=== PATIENT | male | born 1925 | race Caucasian/White ===

== ENCOUNTER 2017-01-26 02:14 | Inpatient (IN) | payer MEDICARE ==
[2017-01-26] VITALS (13 sets, daily range): BP systolic 140–190; BP diastolic 49–111
[~2017-01-26] VITALS: Ht 177.8 cm; Wt 81.3 kg
[~2017-01-26 02:14] MED LIST: ALLP300T PO; AMLO5TAB2 PO; ASP325T PO; ASP81CT; ASP81CT PO; ASP81TEC PO; CETI-208 PO; CLOP75TA PO; CLPD75T PO; COLC0.6T7; CYAN1TAB16 PO; IBP600T1; IRB150T; LNS30CCR; LOSA50TA6 PO; MGX400T PO; MULT-608; NFAMINITAB PO; OMEP40CA36 PO; PNT40TEC PO; RMP5C PO; SMV20T PO; VISION VITAMIN; [UNRECOGNIZED DRUG - OTHER]
[2017-01-26 02:23] LABS: BASOPHILS % (AUTO) 0 % (0-10); EOSINOPHILS # (AUTO) 0.1 10^3/uL (0.0-0.3); EOSINOPHILS % (AUTO) 2 % (0-10); LYMPHOCYTES # (AUTO) 1.3 X 10^3 (1.0-4.0); LYMPHOCYTES % (AUTO) 28 % (12-44); MEAN CORPUSCULAR HEMOGLOBIN 30 PG (25-34); MEAN CORPUSCULAR HGB CONC 33 G/DL (32-36); MEAN CORPUSCULAR VOLUME 90 FL (80-99); MEAN PLATELET VOLUME 11.8 FL (7.4-10.4); MONOCYTES # (AUTO) 0.7 X 10^3 (0.0-1.0); MONOCYTES % (AUTO) 16 % (0-12); NEUTROPHILS # (AUTO) 2.5 X 10^3 (1.8-7.8); NEUTROPHILS % (AUTO) 54 % (42-75); PLATELET COUNT 123 10^3/uL (130-400); RED BLOOD COUNT 3.87 10^6/uL (4.35-5.85); WHITE BLOOD COUNT 4.6 10^3/uL (4.3-11.0)
[2017-01-26 02:31] LABS: PROTHROMBIN TIME PATIENT 13.3 SEC (12.2-14.7)
[2017-01-26] MEDS ORDERED: LABETALOL HCL 20 MG/4 ML VIAL ONE (02:36)
[2017-01-26] MEDS ORDERED: METO-272 PO (02:37)
[2017-01-26 02:41] LABS: ALANINE AMINOTRANSFERASE 10 U/L (0-55); ALBUMIN 3.4 G/DL (3.2-4.5); ANION GAP 13 MMOL/L (5-14); ASPARTATE AMINO TRANSFERASE 17 U/L (5-34); BILIRUBIN,TOTAL 0.5 MG/DL (0.1-1.0); BLOOD UREA NITROGEN 27 MG/DL (7-18); BUN/CREATININE RATIO 13; CALCIUM 9.1 MG/DL (8.5-10.1); CARBON DIOXIDE 19 MMOL/L (21-32); CHLORIDE 110 MMOL/L (98-107); CREATININE SERUM 2.14 MG/DL (0.60-1.30); GFR ESTIMATED 29; GLUCOSE 110 MG/DL (70-105); POTASSIUM 4.1 MMOL/L (3.6-5.0); SODIUM 142 MMOL/L (135-145); TOTAL PROTEIN 5.9 G/DL (6.4-8.2)
[2017-01-26] MEDS ORDERED: LABETALOL HCL 20 MG/4 ML VIAL IV ONE (02:45)
[2017-01-26] MEDS ORDERED: NS IV 1000 ML 1,000 ML IV ONE (02:45)
--- NOTE | 2017-01-26 02:45 | ED Neurological Problem ---
General Chief Complaint: Neuro-Stroke Like Symptoms Stated Complaint: POSS STROKE Nursing Triage Note: PT TO ED PER EMS. EMS WAS ALERTED BY THAT PT WAS THRASHING AROUND IN BED ET WOULD NOT WAKE UP. EMS REPORTS RIGHT SIDE PARALYSIS. PT NOT ALERT. OPENS EYES INTERMITTENTLY WHEN SPOKEN TO. NO VERBALIZATION AT THIS TIME. LAST KNOWN WELL TIME [id number]. Nursing Sepsis Screen: No Definite Risk Source: patient Exam Limitations: no limitations History of Present Illness Time seen by provider: 02:15 Initial Comments This 89-year-old gentleman is brought to the emergency room via EMS after his activated 911 as of decreased responsiveness. Patient was very restless in bed and his could not get him up. EMS reports right-sided deficits and aphasia. Last known well time according to his was approximately 22:30. Exact time is not known. also has some dementia. His does state that he was at baseline and fully functional prior to bed. Patient was taken directly to CT scanner upon arrival. NIH stroke score was 27. Allergies and Home Medications Allergies Coded Allergies: Codeine (Verified Allergy, Unknown, 11/08/06) Uncoded Allergies: [id number] (IV DYE, IODINE CONTAINING) (Allergy, Mild, 09/19/09) Home Medications Allopurinol 300 Mg Tablet, 150 MG PO DAILY, (Reported) Aspirin 81 Mg Tabec, 81 MG PO DAILY, (Reported) Clopidogrel 75 Mg Tablet, 75 MG PO DAILY, (Reported) Magnesium Oxide 400 Mg Tab, 400 MG PO --, (Reported) Metoprolol Succinate 50 Mg Tab.er.24h, 50 MG PO DAILY, (Reported) Pantoprazole Sodium 40 Mg Tablet.dr, 40 MG PO HS, (Reported) Ramipril 5 Mg Capsule, 5 MG PO HS, (Reported) Simvastatin 20 Mg Tablet, 20 MG PO HS, (Reported) Vitamin C/Vitamin E 1 Tab Tab, 1 TAB PO DAILY, (Reported) Constitutional: no symptoms reported Eyes: No Symptoms Reported Ears, Nose, Mouth, Throat: no symptoms reported Respiratory: no symptoms reported Cardiovascular: no symptoms reported Gastrointestinal: no symptoms reported, other (Dysphagia) Genitourinary: no symptoms reported Musculoskeletal: no symptoms reported Skin: no symptoms reported Psychiatric/Neurological: See HPI Endocrine: No Symptoms Reported Hematologic/Lymphatic: No Symptoms Reported Past Snghyip-Ibxtld-Macqwz Hx Patient Social History Recent Foreign Travel: No Contact w/Someone Who Travel: No Recent Infectious Disease Expo: No Immunizations Up To Date Tetanus Booster (TDap): Unknown Date of Pneumonia Vaccine: Sep 10, 2008 Date of Influenza Vaccine: Aug 14, 2012 Surgeries HX Surgeries: Yes Surgeries: Abdominal (hernia), Adenoidectomy, Coronary Stent, Defibrillator, Eye Surgery, Pacemaker, Tonsillectomy, Vascular Surgery (iliac stents) Respiratory Hx Respiratory Disorders: Yes Cardiovascular Hx Cardiac Disorders: Yes Cardiac Disorders: Cardiomyopathy, Coronary Artery Disease, Heart Attack, High Cholesterol, Hypertension, Peripheral Vascular Neurological Hx Neurological Disorders: No Reproductive System Hx Reproductive Disorders: No Genitourinary Hx Genitourinary Disorders: Yes Genitourinary Disorders: Renal Failure Gastrointestinal Hx Gastrointestinal Disorders: No Musculoskeletal Hx Musculoskeletal Disorders: Yes Musculoskeletal Disorders: Gout Endocrine Hx Endocrine Disorders: Yes Endocrine Disorders: Diabetes, Non-Insulin dep HEENT HX ENT Disorders: No HEENT Disorders: Macular Degeneration Cancer Hx Cancer: No Psychosocial Hx Psychiatric Problems: No Integumentary HX Skin/Integumentary Disorder: No Blood Transfusions Hx Blood Disorders: No Physical Exam Vital Signs Vital Sign - Last 12Hours 01/26/17 01/26/17 02:14 02:20 Temp 99.2 Pulse 57 Resp 14 B/P (MAP) 184/76 Pulse Ox 96 O2 Delivery Nasal Cannula O2 Flow Rate 2.00 Capillary Refill : Less Than 3 Seconds General Appearance: WD/WN, no apparent distress HEENT: PERRL/EOMI, normal ENT inspection, other (hypersensitivity to light) Neck: normal inspection Respiratory: lungs clear, normal breath sounds, no respiratory distress, no accessory muscle use Cardiovascular: regular rate, rhythm, no edema, no murmur Gastrointestinal: normal bowel sounds, non tender, soft Extremities: normal inspection, no pedal edema Neurologic/Psychiatric: alert, other (Aphasia, right extremity paralysis, Right -sided facial droop) Crainal Nerves: PERRL Skin: normal color, warm/dry Progress/Results/Core Measures Results/Orders Lab Results Laboratory Tests Test 01/26/17 02:15 01/26/17 03:10 Range/Units White Blood Count 4.6 4.3-11.0 10^3/uL Red Blood Count 3.87 L 4.35-5.85 10^6/uL Hemoglobin 11.5 L 13.3-17.7 G/DL Hematocrit 35 L 40-54 % Mean Corpuscular Volume 90 80-99 FL Mean Corpuscular Hemoglobin 30 25-34 PG Mean Corpuscular Hemoglobin Concent 33 32-36 G/DL Red Cell Distribution Width 15.0 H 10.0-14.5 % Platelet Count 123 L 130-400 10^3/uL Mean Platelet Volume 11.8 H 7.4-10.4 FL Neutrophils (%) (Auto) 54 42-75 % Lymphocytes (%) (Auto) 28 12-44 % Monocytes (%) (Auto) 16 H 0-12 % Eosinophils (%) (Auto) 2 0-10 % Basophils (%) (Auto) 0 0-10 % Neutrophils # (Auto) 2.5 1.8-7.8 X 10^3 Lymphocytes # (Auto) 1.3 1.0-4.0 X 10^3 Monocytes # (Auto) 0.7 0.0-1.0 X 10^3 Eosinophils # (Auto) 0.1 0.0-0.3 10^3/uL Basophils # (Auto) 0.0 0.0-0.1 10^3/uL Prothrombin Time 13.3 12.2-14.7 SEC INR Comment 1.0 0.8-1.4 Activated Partial Thromboplast Time 32 24-35 SEC D-Dimer 1.61 H 0.00-0.49 UG/ML Sodium Level 142 135-145 MMOL/L Potassium Level 4.1 3.6-5.0 MMOL/L Chloride Level 110 H 98-107 MMOL/L Carbon Dioxide Level 19 L 21-32 MMOL/L Anion Gap 13 5-14 MMOL/L Blood Urea Nitrogen 27 H 7-18 MG/DL Creatinine 2.14 H 0.60-1.30 MG/DL Estimat Glomerular Filtration Rate 29 BUN/Creatinine Ratio 13 Glucose Level 110 H 70-105 MG/DL Calcium Level 9.1 8.5-10.1 MG/DL Total Bilirubin 0.5 0.1-1.0 MG/DL Aspartate Amino Transf (AST/SGOT) 17 5-34 U/L Alanine Aminotransferase (ALT/SGPT) 10 0-55 U/L Alkaline Phosphatase 65 40-136 U/L Troponin I < 0.30 <0.30 NG/ML Total Protein 5.9 L 6.4-8.2 G/DL Albumin 3.4 3.2-4.5 G/DL Urine Color YELLOW Urine Clarity SLIGHTLY CLOUDY Urine pH 6 5-9 Urine Specific [place] 1.015 L 1.016-1.022 Urine Protein 3+ H NEGATIVE Urine Glucose (UA) NEGATIVE NEGATIVE Urine Ketones NEGATIVE NEGATIVE Urine Nitrite NEGATIVE NEGATIVE Urine Bilirubin NEGATIVE NEGATIVE Urine Urobilinogen NORMAL NORMAL MG/DL Urine Leukocyte Esterase NEGATIVE NEGATIVE Urine RBC (Auto) 1+ H NEGATIVE Urine RBC 2-5 H /HPF Urine WBC NONE /HPF Urine Crystals PRESENT H /LPF Urine Amorphous Sediment FEW NELSY URATES H /LPF Urine Bacteria TRACE /HPF Urine Casts NONE /LPF Urine Mucus NEGATIVE /LPF Urine Culture Indicated NO My Orders Orders - ABIODUN BRYSON MD Ct Head Wo-R/O Stroke (01/26/17 02:16) Cbc With Automated Diff (01/26/17 02:16) Protime With Inr (01/26/17 02:16) Partial Thromboplastin Time (01/26/17 02:16) Comprehensive Metabolic Panel (01/26/17 02:16) Fibrin Degradation Products (01/26/17 02:16) Troponin I (01/26/17 02:16) Ua Culture If Indicated (01/26/17 02:16) Chest 1 View, Ap/Pa Only (01/26/17 02:16) Catheter(Urinary) Insert & Ass 03,15 (01/26/17 02:16) Ekg Tracing (01/26/17 02:16) Nothing By Mouth (01/26/17 Breakfast) Accucheck Stat ONCE (01/26/17 02:16) Saline Lock/Iv-Start (01/26/17 02:16) Saline Lock/Iv-Start (01/26/17 02:16) Vital Signs-Stroke Q1H (01/26/17 02:16) O2 (01/26/17 02:16) Intake & Output 06,14,22 (01/26/17 02:16) Monitor-Rhythm Ecg Trace Only (01/26/17 02:16) Dysphagia Screening Tool (01/26/17 02:16) Post Thrombolytic Adminstratio (01/26/17 02:16) Labetalol Injection (Normodyne Injection (01/26/17 02:45) Labetalol Injection (Normodyne Injection (01/26/17 02:36) Ns Iv 1000 Ml (Sodium Chloride 0.9%) (01/26/17 02:45) Vital Signs/I&O Vital Sign - Last 12Hours 01/26/17 01/26/17 02:14 02:20 Temp 99.2 Pulse 57 Resp 14 B/P (MAP) 184/76 Pulse Ox 96 O2 Delivery Nasal Cannula O2 Flow Rate 2.00 Blood Pressure Mean: 112 Progress Note #1: Time: 02:43 Progress Note Patient has extremely profound deficits. Last known well time reported by patient's who has dementia was 22:30. CT of the head showed no acute intracranial findings. Case was reviewed with Dr. Mohan, stroke neurologist at [facility]. She believes there are too many risk factors including prolonged time from onset, age, high blood pressure. She advises against giving TPA. Progress Note #2: Progress Note I had a follow-up conversation with Dr. Mohan regarding the potential for performing a CT angiogram. Given the duration of time has lapsed and patient's renal failure, CT angiogram was not felt to be beneficial. Patient was not allowed to drink as he had some difficulty with clearing and coughing his secretions. ECG Initial ECG Impression Date: Jan 26, 2017 Initial ECG Impression Time: 02:24 Initial ECG Rate: 60 Initial ECG Rhythm: Normal Sinus Comment Sinus rhythm with first-degree AV block and chronic left bundle branch block. No significant changes from prior. Diagnostic Imaging Diagonstic Imaging: Xray Plain Films/CT/US/NM/MRI: chest Comments Chest x-ray viewed by me. No acute abnormalities appreciated when compared with prior. Diagonstic Imaging: CT Plain Films/CT/US/NM/MRI: head Comments CT head viewed by me and statin rad report reviewed. No acute abnormalities appreciated. Departure Communication Time/Spoke to Admitting Phy: 03:45 Communication Case reviewed with Dr. Carson who agrees with admission. She requests the in- house stroke order set be used. Patient is to be admitted to the cardiac step down unit. Impression Impression: Primary Impression: Cerebrovascular accident due to cerebral artery occlusion Additional Impressions: Right sided weakness Aphasia Dysphagia Qualified Codes: R13.10 - Dysphagia, unspecified Hypertension Qualified Codes: I10 - Essential (primary) hypertension Disposition: ADMITTED INPATIENT Condition: Improved Decision to Admit Reason: Admit from ER (General) Decision to Admit/Date: Jan 26, 2017 Departure-Patient Inst. Referrals: JERRY CARSON MD (PCP/Family) Primary Care Physician ABIODUN BRYSON MD Jan 26, 2017 02:45
[2017-01-26 02:47] LABS: TROPONIN I < 0.30 NG/ML (<0.30)
[2017-01-26 03:24] LABS: BILIRUBIN,URINE NEGATIVE (NEGATIVE); KETONES,URINE NEGATIVE (NEGATIVE); LEUKOCYTE ESTERASE ,URINE NEGATIVE (NEGATIVE); NITRITE,URINE NEGATIVE (NEGATIVE); PH,URINE 6 (5-9); PROTEIN,URINE 3+ (NEGATIVE); UROBILINOGEN,URINE NORMAL (NORMAL)
[2017-01-26] MEDS ORDERED: SCOPOLAMINE 1.5 MG (TRANSDERM-SCOP) PATCH TD ONE (04:30)
[2017-01-26] MEDS ORDERED: ACETAMINOPHEN 325 MG TABLET/CAPLET (TYLENOL) PO PRN (05:45)
[2017-01-26] MEDS ORDERED: ONDANSETRON 4 MG/2 ML (SDV) Z0FRAN IV PRN (05:45)
[2017-01-26] MEDS ORDERED: BISACODYL 10 MG SUPP (DULCOLAX) PR PRN (05:45)
[2017-01-26] MEDS: D5 1/2 NS 1000 ML IV SOLUTION 1,000 ML IV SCH ×2 (06:23→16:55)
[2017-01-26] MEDS ORDERED: CATHETER FLUSH 10 ML SYR IV PRN (07:15)
--- NOTE | 2017-01-26 07:43 | Diagnostic Imaging Report ---
EXAM: CT HEAD WO-R/O STROKE. INDICATION: Stroke. COMPARISON: None. FINDINGS: No CT evidence of acute infarction. No intracranial hemorrhage, mass effect, extra-axial fluid collections, or hydrocephalus. Intracranial vascular calcifications. Moderate generalized cerebral and cerebellar parenchymal volume loss. The mastoids, paranasal sinuses, and orbits are unremarkable. Osseous structures are intact. IMPRESSION: No acute intracranial CT findings. Dictated by: Dictated on workstation # [id number]
--- NOTE | 2017-01-26 07:53 | Diagnostic Imaging Report ---
EXAM: CHEST 1 VIEW, AP/PA ONLY. INDICATION: Stroke. COMPARISON: Chest radiograph 08/01/2013. FINDINGS: Shallow inspiration accentuates the heart size and pulmonary vascularity. AICD. Calcified aorta. Calcified nodule in the left lung base is stable. No pleural effusion or pneumothorax. Mild atelectasis and/or scarring in the left lung base. IMPRESSION: No acute cardiopulmonary findings. Dictated by: Dictated on workstation # [id number]
[2017-01-26] MEDS: FAMOTIDINE 20MG/2ML IV (PEPCID) IV SCH (08:06)
--- NOTE | 2017-01-26 08:23 | History & Physicial ---
History of Present Illness History of Present Illness Reason for visit/HPI PT IS AN 89 Y/O MALE WHO IS KNOWN TO ME FROM CLINIC. THE PATIENT HAS HISTORY OF CORONARY ARTERY DISEASE, PERIPHERAL VASCULAR DISEASE. HE PRESENTED TO THE EMERGENCY DEPARTMENT AFTER HIS AWAKENED TO ED PULLING/ MOVING THE SHEETS - THIS WAS AROUND 1 AM. SHE REPORTS THAT SHE WAS UNABLE TO AWAKEN HIM AND SHE CALLED HER SISTERS AND 911. HE ARRIVED THE THE EMERGENCY DEPT AND WAS STILL NOT COHERENT, CT SCAN WAS NEGATIVE, BUT PHYSICAL EXAM WAS CONSISTENT WITH STROKE. THE PT WAS ADMITTED TO THE ICU, TPA WAS NOT ADMINISTERED DUE TO HIS AGE, RENAL FUNCTION. HE WAS UNABLE TO SWALLOW MEDICATION FOR ADMINISTRATION OF ASPIRIN/ PLAVIX. Date of Admission Jan 26, 2017 at 04:13 I consulted on this patient on 01/26/17 08:22 Attending Physician Jerry Carson MD Admitting Physician Jerry Carson MD Consult Allergies and Home Medications Allergies Coded Allergies: Iodinated Contrast Media - Oral and (Verified Allergy, Unknown, 01/26/17) codeine (Verified Allergy, Unknown, 11/08/06) Home Medications Allopurinol 300 Mg Tablet, 150 MG PO DAILY, (Reported) TAKES 1/2 OF A (300 MG) TABLET Aspirin 81 Mg Tabec, 81 MG PO HS, (Reported) Cholecalciferol (Vitamin D3) 5,000 Unit Capsule, 5,000 UNIT PO HS, (Reported) Clopidogrel Bisulfate 75 Mg Tablet, 75 MG PO HS, (Reported) Magnesium Oxide 400 Mg Tab, 400 MG PO DAILY, (Reported) Metoprolol Succinate 50 Mg Tab.er.24h, 50 MG PO DAILY, (Reported) Pantoprazole Sodium 40 Mg Tablet.dr, 40 MG PO DAILY, (Reported) Ramipril 5 Mg Capsule, 5 MG PO HS, (Reported) Simvastatin 40 Mg Tablet, 20 MG PO HS, (Reported) TAKES 1/2 OF A (40 MG) TABLET Past Rywgitr-Roqsyg-Hekxkn Hx Patient Social History Marrital Status: Number of Children: 1 Number of living children: 1 Living Status: LIVES AT HOME WITH SPOUSE WHO HAS MEMORY LOSS Employed/Student: retired Alcohol Use: Rarely Uses Recreational Drug Use: No Smoking Status: Former Smoker Type Used: Cigarettes 2nd Hand Smoke Exposure: No Physical Abuse Screen: No Sexual Abuse: No Recent Foreign Travel: No Contact w/other who traveled: No Recent Hopitalizations: No Recent Infectious Disease Expo: No Immunizations Up To Date Tetanus Booster (TDap): Unknown Date of Pneumonia Vaccine: Sep 10, 2008 Date of Influenza Vaccine: Aug 14, 2012 Seasonal Allergies Seasonal Allergies: No Surgeries HX Surgeries: Yes (PERIPHERAL STENTS) Surgeries: Abdominal (hernia), Adenoidectomy, Coronary Stent, Defibrillator, Eye Surgery, Pacemaker, Tonsillectomy, Vascular Surgery (iliac stents) Respiratory Hx Respiratory Disorders: Yes Cardiovascular Hx Cardiovascular Disorders: Yes Cardiac Disorders: Cardiomyopathy, Coronary Artery Disease, Heart Attack, High Cholesterol, Hypertension, Peripheral Vascular Neurological Hx Neurological Disorders: No Reproductive System Hx Reproductive Disorders: No Sexually Transmitted Disease: No HIV/AIDS: No Genitourinary Hx Genitourinary Disorders: Yes Genitourinary Disorders: Renal Failure Gastrointestinal Hx Gastrointestinal Disorders: No Musculoskeletal Hx Musculoskeletal Disorders: Yes Musculoskeletal Disorders: Arthritis, Gout Endocrine Hx Endocrine Disorders: Yes Endocrine Disorders: Diabetes, Non-Insulin dep HEENT HX ENT Disorders: No HEENT Disorders: Macular Degeneration Loss of Vision: Denies Hearing Impairment: Denies Cancer Hx Cancer: No Psychosocial Hx Psychiatric Problems: No Integumentary HX Skin/Integumentary Disorder: No Blood Transfusions Hx Blood Disorders: No Adverse Reaction to a Blood Tr: No Reviewed Nursing Assessment Reviewed/Agree w Nursing PMH: Yes Family Medical History Significant Family History: Heart Disease, Hypertension ROS-Unable to Obtain: UNABLE TO OBTAIN DUE TO NONVERBAL STATUS Constitutional: No fever Psychiatric/Neurological: Other (UNABLE TO RESPOND) Physical Exam Vital Signs Vital Sign - Last 12Hours 01/26/17 01/26/17 02:14 02:20 Temp 99.2 Pulse 57 Resp 14 B/P (MAP) 184/76 Pulse Ox 96 O2 Delivery Nasal Cannula O2 Flow Rate 2.00 Capillary Refill : Less Than 3 Seconds General Appearance: Other (OPENS EYES TO VOICE AND TACTILE STIMULI, BUT NOT ABLE TO COMMUNICATE) Eyes: Bilateral Eye Normal Inspection, Bilateral Eye PERRL HEENT: PERRL/EOMI Neck: Supple Respiratory: Chest Non Tender, Lungs Clear, Normal Breath Sounds Cardiovascular: Regular Rate, Rhythm, No Edema Gastrointestinal: Normal Bowel Sounds, No Organomegaly, No Pulsatile Mass, Non Tender, Soft Rectal: Deferred Extremity: Normal Capillary Refill, No Pedal Edema Neurologic/Psychiatric: Aphasia, Depressed Affect, Disoriented x3, Facial Droop (SLIGHTLY ON RIGHT), Motor Weakness (ON RIGHT HAND/ARM) Reflexes: 2+ Bicep (R), 2+ Bicep (L), 2+ Knee (R), 2+ Knee (L) Skin: Normal Color, Warm/Dry Lymphatic: No Adenopathy Assessment/Plan Assessment and Plan CVA CARDIOMYOPATHY HYPERTENSION DIABETES MELLITUS APHASIA HYPERLIPEMIA PT APPEARS TO HAVE HAD A SIGNIFICANT STROKE - WAITING ON REPEAT CT SCAN FOR FULL DETAILS, PT UNABLE TO TAKE PO MEDICATIONS - WILL GIVE BEST SUPPORTIVE CARE AT THIS TIME. I HAVE DISCUSSED WITH PT'S SON AND HE DOES NOT WANT ANY FEEDING TUBES, OR OTHER LIFE-PROLONGING TREATMENTS. HE WANTS HIS FATHER TO BE DNR/DNI. ECHO AND CAROTID US PENDING HTN - LOPRESSOR IV - PARAMETERS FOR BLOOD PRESSURE TO NOT GO BELOW 140 AND HEART RATE TO STAY ABOVE 50. DM - PT NPO - SUPPORTIVE CARE. APHASIA - SPEECH TO EVAL PT. Problems: Admission Diagnosis CVA CARDIOMYOPATHY HYPERTENSION DIABETES MELLITUS APHASIA HYPERLIPEMIA Clinical Quality Measures DVT/VTE Risk/Contraindication: Risk Factor Score Per Nursin RFS Level Per Nursing on Admit: 4+=Very High JERRY CARSON MD Jan 26, 2017 08:23
[2017-01-26] MEDS ORDERED: ASPIRIN E.C. 325 MG (ECOTRIN) TABLET PO SCH (09:00)
[2017-01-26] MEDS ORDERED: PANT40TA3 PO (09:14)
[2017-01-26] MEDS ORDERED: RAMI5CAP PO (09:14)
[2017-01-26] MEDS ORDERED: METO-352 PO (09:14)
[2017-01-26] MEDS ORDERED: SIMV40TA4 PO (09:14)
[2017-01-26] MEDS ORDERED: CLOP75TA28 PO (09:14)
[2017-01-26] MEDS ORDERED: ALLO300T2 PO (09:14)
[2017-01-26] MEDS ORDERED: CHOL5000 PO (09:14)
[2017-01-26] MEDS ORDERED: meTOprolol 5 MG/5 ML (LOPRESSOR) VIAL IV NR (09:30)
--- NOTE | 2017-01-26 09:32 | Occupational Therapy Eval ---
OT Evaluation-General/PLF Medical Diagnosis Admission Date Jan 26, 2017 at 04:13 Medical Diagnosis: CVA, R sided weakness, aphasia, dysphagia Onset Date: Jan 26, 2017 Therapy Diagnosis Therapy Diagnosis: weakness, decr self care, decr func use R UE, decr funct mob , decr vision Height/Weight Height (Feet): 5 Height (Inches): 10.00 Weight (Pounds): 189 Weight (Ounces): 2.0 Precautions Precautions/Isolations: Fall Prevention, Standard Precautions Referral Physician: ahmet Referral Reason: Evaluation/Treatment Medical History Pertinent Medical History: CAD, DM, HTN, NV, Macular Degenertion, PVD Additional Medical History Coronary stent, defibrillator, pacemaker, iliac stents, cardiomyopathy, renal failure, gout. Social History Current Living Status: Spouse ADL-Prior Level of Function ADL PLOF Comments Family reported pt was independent with all basic ADLs and drove yesterday. 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 DME/Equipment Comments Unknown equipment Occupation: retired, worked in sales Drive Self: Yes OT Current Status Subjective Pt seen in room, up in bed. Does not interact with OT other than to wink with his left eye when OT in L visual field. Appearance Unable to assess orientation. Pt is non-verbal and does not follow any commands Mental Status/Objective Attachments: Vásquez Catheter, IV, Telemetry Current Glasses/Contacts: Yes Hearing Aids: Yes Upper Extremity ROM L UE WFL passive range. No active movement due to difficulty following commands but family reported he does move L UE. R UE PROM WFL but no active movement. Upper Extremity Sensation Unable to assess. Pt has macular degeneration so prior vision difficult to assess. He does not look to the right past midline and does not track visually at this time. He does not respond to verbal stimuli on his right side. ADL-Treatment ADL-Current Pt is NPO at this time. He is dependant in self care at this time. Functional [place] Measure 0=Not Assessed/NA 4=Minimal Assistance 1=Total Assistance 5=Supervision or Setup 2=Maximal Assistance 6=Modified [place] 3=Moderate Assistance 7=Complete IndependenceIRFPAI Quality Coding Scale 6 Independent with activity with or without an assistive device 5 Patient requires set up or clean up by helper. Patient completes activity by themselves 4 Supervision or touching assist (CGA). [place] provide cues , steadying assist 3 The helper provides less than half the effort to complete the activity 2 The helper provides more than half the effort to complete the activity 1 Dependent. The helper does all the effort to complete an activity 7 Patient refused to complete or attempt activity 9 The patient did not perform the activity before the current illness or injury 88 Not attempted due to Medical conditions or safety concerns Education OT Patient Education: Purpose of tx/functional activities, Rehab process Teaching Recipient: Family Teaching Methods: Discussion Response to Teaching: Verbalize Understanding OT Short Term Goals Short Term Goals Time Frame: Feb 09, 2017 Eating(FIM): 4 Grooming(FIM): 4 Bathing(FIM): 3 Upper Body Dressing(FIM): 3 Lower Body Dressing(FIM): 2 1=Demonstrate adherence to instructed precautions during ADL tasks. 2=Patient will verbalize/demonstrate understanding of assistive devices/ modifications for ADL. 3=Patient will improve strength/tolerance for activity to enable patient to perform ADL's. OT Allergist Goals Penitentiary Goals Time Frame: February 16, 2017 Eating (FIM): 5 Grooming(FIM): 5 Bathing(FIM): 3 Upper Body Dressing(FIM): 4 Lower Body Dressing(FIM): 4 Toileting(FIM): 3 Toilet/Commode Transfer(FIM): 3 Additional Goals: 2-Verbalize Understanding, 3-ImproveStrength/Michelle 1=Demonstrate adherence to instructed precautions during ADL tasks. 2=Patient will verbalize/demonstrate understanding of assistive devices/ modifications for ADL. 3=Patient will improve strength/tolerance for activity to enable patient to perform ADL's. OT Education/Plan Problem List/Assessment Assessment: Dependent Transfers, Impaired Bed Mobility, Impaired Cognition, Impaired Self-Care Skills, Visual-Perceptual Deficit Pt would benefit from skilled OT to increase his independence in basic self care to allow him to go to the least restrictive environment and decrease caregiver burden. Discharge Recommendations Plan/Recommendations: Continue POC Barriers to Progress significant multiple impairments Treatment Plan/Plan of Care Treatment,Training & Education: Yes Patient would benefit from OT for education, treatment and training to promote independence in ADL's, mobility, safety and/or upper extremity function for ADL' s. Plan of Care: ADL Retraining, Caregiver Training, Functional Mobility, UE Funct Exercise/Act, UE Neuromus Re-Ed/Coord, Visual/Perceptual Retrain Treatment Duration: February 16, 2017 # of days/week 5 Visits Per Week: 5 Agreement: Yes (family in agreement) Rehab Potential: Guarded Time/GCodes Start Time: :13 Stop Time: 09:20 Total Time Billed (hr/min): 7 Billed Treatment Time visit, OT evaluation moderate intensity 7 minutes BRUCE TRUONG OT Jan 26, 2017 09:32
--- NOTE | 2017-01-26 10:32 | Diagnostic Imaging Report ---
PROCEDURE: CT head without contrast. TECHNIQUE: Multiple contiguous axial images were obtained through the brain without the use of intravenous contrast. INDICATION: Stroke. FINDINGS: Compared to 01/26/2017, exam performed 7 hours earlier, there is interval development of hypodensity with evidence of cytotoxic edema along the left insula and subinsular region compatible with an acute infarct. No intracranial hemorrhage. There is no hydrocephalus or extra-axial fluid collection. There are background white matter chronic ischemic changes seen. The area of acute infarct above involves the left insula, adjacent aspect of the basal ganglia, and perisylvian cortex, probably around 15% of the left MCA territory. Te osseous structures, the paranasal sinuses and orbits appear grossly unremarkable. IMPRESSION: Findings compatible with an acute nonhemorrhagic infarct surrounding the left insular region, affecting approximately 15% of the left MCA territory. The findings were called with a voice message left for Dr. Carson at time of dictation. Dictated by: Dictated on workstation # [id number]
--- NOTE | 2017-01-26 11:11 | Physical Therapy Evaluation ---
PT Evaluation-General Medical Diagnosis Admission Date Jan 26, 2017 at 04:13 Medical Diagnosis: CVA, R sided weakness, aphasia, dysphagia Onset Date: Jan 26, 2017 Therapy Diagnosis Therapy Diagnosis: generalized weakness and debility Height/Weight Height (Feet): 5 Height (Inches): 10.00 Weight (Pounds): 189 Weight (Ounces): 2.0 Precautions Precautions/Isolations: Fall Prevention, Standard Precautions Referral Physician: Alli Reason for Referral: Evaluation/Treatment Medical History Pertinent Medical History: CAD, DM, HTN, DC, Macular Degenertion, PVD Additional Medical History [employer] [employer] with hearing aids Current History presents with right sided weakness and neglect; aphasia Reviewed History: Yes Social History Home: Single Level Current Living Status: Spouse Prior/Core FIM Prior Level of Function Functional [place] Measure 0=Not Assessed/NA 4=Minimal Assistance 1=Total Assistance 5=Supervision or Setup 2=Maximal Assistance 6=Modified [place] 3=Moderate Assistance 7=Complete [place] Bed Mobility: 6 Transfers (B,C,W/C) (FIM): 6 Gait: 6 PT Evaluation-Current Subjective Patient is in bed with multiple family members present. Pain Numeric Pain Scale: 0-No Pain Location: No Pain Reported Objective Patient Orientation: Non-Verbal/Aphasic Attachments: Oxygen, Vásquez Catheter, IV ROM/Strength ROM Lower Extremities bilateral LE WFL Strenght Lower Extremities left LE 3-/5 grossly; right LE recoils with pain stimuli plantar aspect of foot ( no formal testing due to patient inability to follow direction) Integumentary/Posture Integumentary refer to nursing notes Bladder Incontinence: Vásquez Cath Neuromuscular (Tone, Coordination, Reflexes) diminished coordination bilaterally; no purposeful movement Sensory Vision: Blind Totally Hearing: Hearing Aid/Aides Sensation Right Lower Extremit: Intact Sensation Left Lower Extremity: Intact Transfers Functional [place] Measure 0=Not Assessed/NA 4=Minimal Assistance 1=Total Assistance 5=Supervision or Setup 2=Maximal Assistance 6=Modified [place] 3=Moderate Assistance 7=Complete [place] Transfers (B, C, W/C) (FIM): 1 Scootin dependent assist x 2 with bed mobility Assessment/Needs 89 y.o. male, with acute CVA, will benefit from skilled PT to address functional strength and mobility. Patient with require gradual advancement of skilled therapy to ensure proper and safe results. PT to increase activity as tolerated by patient. Rehab Potential: Guarded Post Rehab Potential-Barriers: acute CVA PT Short Term Goals Short Term Goals Time Frame: Feb 03, 2017 Transfers (B,C,W/C) (FIM): 3 Gait (FIM): 1 Distance (FIM): 1=up to 49 ft Gait Distance Comment: 10' Gait Level of Assist: 3 Gait Assistive Device: FWW, Walker Darryl PT Business Intelligence Manager Goals Penitentiary Goals PT Business Intelligence Manager Goals Time Frame: February 16, 2017 Transfers (B,C,W/C) (FIM): 5 Gait (FIM): 2 Gait distance (FIM): 3=786-68 ft Distance: 75' Gait Level of Assist: 2 Gait Assistive Device: FWW, Cane Single Point, Walker Darryl PT Plan Problem List Problem List: Activity Tolerance, Functional Strength, Safety, Balance, Gait, Transfer, Bed Mobility Treatment/Plan Treatment Plan: Continue Plan of Care Treatment Plan: Bed Mobility, Education, Functional Activity Michelle, Functional Strength, Gait, Safety, Therapeutic Exercise, Transfers Treatment Duration: February 16, 2017 # of days/week 6 Visits Per Week: 6-11 Pt/Family Agrees w/Plan: Yes Safety Risks/Education Patient Education: Disease Process, Safety Issues Teaching Recipient: Family Teaching Methods: Discussion Response to Teaching: Verbalize Understanding Time/GCodes Time In: 955 Time Out: 1020 Total Billed Treatment Time: 25 Total Billed Treatment 1 visit EVModC 25 min HERBERT FIELDS PT Jan 26, 2017 11:11
--- NOTE | 2017-01-26 11:38 | ST Dysphagia Evaluation ---
Speech Evaluation-General Medical Diagnosis CVA (left MCA), Receptive and Expressive Aphasia, Dysphagia Onset Date: Jan 26, 2017 Therapy Diagnosis Therapy Diagnosis: Severe Oropharyngeal Dysphagia Precautions Precautions/Isolations: Fall Prevention, Standard Precautions Referral Referring Physician: Dr. Aparna Carson Reason for Referral: Evaluation/Treatment Clinical Bedside Swallowing Evaluation Medical History Pertinent Medical History: CAD, DM, HTN, PA, Macular Degenertion, PVD Reviewed History: Yes Social History Home: Single Level Current Living Status: Spouse Speech PLF/Current-Dysphagia Prior Level of Function The patient was receiving a regular diet with thin liquids prior to admission. The patient was not experiencing signs/symptoms of aspiration or laryngeal penetration with any consistency he currently consumes. To note: The patient is currently demonstrating severe expressive and receptive aphasia. Prior level of function information was provided by present family members. Subjective The patient was recently admitted to [facility] following a left MCA ischemic CVA resulting in right sided weakness, aphasia (receptive and expressive), and dysphagia. The patient was placed in an upright position upon entrance. The patient opened his eyes to his name and noise stimuli, however, did not respond to one-step commands (regardless of model provided). Prior to bolus attempts, the patient was provided oral care by the clinician. The patient intermittently attempted to remove liquid from the oral swab, however, demonstrated this motion inconsistently. The patient required maximum verbal prompting for continued alertness throughout the session. The patient is currently receiving 2L supplemental oxygen via nasal cannula. The patient's SpO2 % was 95% prior to, throughout, and following the evaluation. CXR: 01/26/2017: No acute cardiopulmonary findings. Head CT: 01/26/2017: The area of acute infarct involves the left insula, adjacent aspect of the basal ganglia, and perisylvian cortex, probably around 15 % of the left MCA territory. Cognitive Status Patient Orientation: Non-Verbal/Aphasic The patient was unable to respond to orientation questions due to severe expressive and receptive aphasia. Oral Motor Skills Dentition: Natural (Lower, Front Teeth Present) Denture Type: Partial- Upper & Lower Ability to Follow Directions: Unable Oral Expression Ability: Severe Impairment The patient is NPO pending results of swallowing evaluation. Face Facial Symmetry: Asymmetrical (The patient presents with a right facial droop.) The patient was unable to complete verbal prompts or direct modeling cues from clinician to complete oral mechanism evaluation. Oral-Facial Assessment Oral-Facial Dentition: Normal Labial Seal Description: Droops Right Smile: Droops Right Volitional Dry Swallow: No Voluntary Cough: No Dysphagia Evaluation Consistencies Presented: Thin Liquid (Ice Chips via Teaspoon) Oral Phase: Anterior Spillage Anterior loss (right) of liquid consistency was noted throughout the evaluation. - The patient did not elicit a swallow response regardless of tactile stimulus or the presence of bolus material. - The patient demonstrated a wet cough at baseline, which appeared secondary to posterior loss of secretions. Dietary Recommendations: NPO Liquid Recommendations: NPO Dysphagia Evaluation Summary The patient demonstrated severe oropharyngeal dysphagia complicated by his current presentation of expressive and receptive aphasia. At this time, the patient demonstrates throat clearing on secretions and is unable to elicit a swallow response upon command. As the patient does not appear to be handling secretions safely, demonstrates reduced alertness, and displays the inability to follow commands at this time- the patient should remain NPO due to his high risk of aspiration with PO intake of any kind. - Frequent oral care should be provided to reduce the transfer of oral bacteria to the lungs should aspiration of secretions occur. Speech Short Term Goals Short Term Goals Short Term Goals 1. The patient will complete a full oropharyngeal evaluation of swallowing function. Time Frame-STG: Three Days Speech High [employer] Drafting Teacher Goals Care Home Goals 1. The patient will tolerate the least restrictive diet without signs/symptoms of aspiration or laryngeal penetration. Time Frame: One Week Speech-Plan Treatment Plan Speech Therapy Treatment Plan: Continue Plan of Care Continue speech language pathology intervention to target improved swallowing safety. Treatment Duration: Feb 09, 2017 # of days/week Three Visits Per Week: Three Minutes/Day (M-F): 20 Rehab Potential: Guarded Safety Risks/Education Teaching Recipient: Patient, Family, Significant Other Teaching Methods: Discussion Response to Teaching: Verbalize Understanding Education Topics Provided: Results, Recommendations, Plan of Care Time Speech Therapy Time In: 10:30 Speech Therapy Time Out: 10:50 Total Billed Time: 20 Billed Treatment Time Shani KIET MCCARTNEY Jan 26, 2017 11:38
--- NOTE | 2017-01-26 11:53 | Diagnostic Imaging Report ---
PROCEDURE: US Carotid Duplex Bilateral. TECHNIQUE: Multiple real-time grayscale images were obtained over the carotid arteries in various projections bilaterally. Additional duplex Doppler and color Doppler images were also obtained. INDICATION: Acute infarct. FINDINGS: There is mild atherosclerotic plaque along the carotid bifurcation bilaterally. Color Doppler demonstrates patency of the common, internal, and external carotid arteries bilaterally. There is antegrade flow in the vertebral arteries seen on both sides. Peak systolic velocities in the right ICA are 129, 82, and 92 cm/s from proximal/ distal and on the left 73, 77, and 90 cm/s from proximal/ distal. ICA/ CCA ratios are up to 1.6 on the right and up to 0.8 on the left. IMPRESSION: Mild atherosclerotic plaque with estimated underlying stenosis less than 50% bilaterally. Dictated by: Dictated on workstation # [id number]
[2017-01-26] MEDS ORDERED: meTOprolol 5 MG/5 ML (LOPRESSOR) VIAL IV SCH (12:00)
--- NOTE | 2017-01-26 13:18 | Speech Therapy Progress Note ---
Therapy Progress Note Speech pathology attempted speech and language evaluation following dysphagia assessment on this date. At this time, the patient demonstrates limited alertness and participation in the evaluation. The patient intermittently opens eyes to auditory stimulus, however, does not follow simple one-step commands with verbal cues or direct modeling. The patient does not respond to yes/no questions via head nod or verbalization. Additionally, the patient's gaze does not appear to cross midline demonstrating right neglect at this time. Speech pathology will re-attempt language evaluation at a later time. Currently, the patient demonstrates severe expressive and receptive aphasia. KIET OWEN Jan 26, 2017 13:18
[2017-01-26] MEDS ORDERED: ENOXAPARIN 100 MG/1 ML (LOVENOX) SYR SC SCH (14:00)
[2017-01-26] MEDS ORDERED: LORazepam INJ 2 MG/ML (ATIVAN) VIAL IVP NR (14:00)
[2017-01-26] MEDS ORDERED: ENOXAPARIN 40 MG/0.4 ML (LOVENOX) SYR SC SCH (15:00)
--- NOTE | 2017-01-26 15:29 | Speech Therapy Progress Note ---
Therapy Progress Note Speech pathology re-attempted complete dysphagia evaluation. Per RN, the patient was recently administered Ativan due to agitation. Upon entrance, the patient was sleeping. The patient was not roused with gentle verbal or tactile prompts. The patient was observed to cough on secretions throughout brief visit with family members. The patient's mouth was swabbed orally by the clinician prior to exit. Speech pathology will continue attempts to complete evaluation once the patient demonstrates improved alertness/appropriateness. KIET OWEN Jan 26, 2017 15:29
[2017-01-26] MEDS: ASPIRIN 300 MG (5 GR) SUPPOSITORY PR SCH (16:55)
[2017-01-26] MEDS: meTOprolol 5 MG/5 ML (LOPRESSOR) VIAL IV SCH ×2 (19:26→23:48)
[2017-01-26] MEDS: ACETAMINOPHEN 650 MG SUPP (TYLENOL) PR PRN (23:38)
[2017-01-27] VITALS: BP 154/81
[2017-01-27] MEDS: D5 1/2 NS 1000 ML IV SOLUTION 1,000 ML IV SCH ×3 (02:18→22:10)
[2017-01-27 03:55] LABS: MEAN PLATELET VOLUME 12.1 FL (7.4-10.4); RED BLOOD COUNT 3.45 10^6/uL (4.35-5.85); RED CELL DISTRIBUTION WIDTH 14.8 % (10.0-14.5); WHITE BLOOD COUNT 6.5 10^3/uL (4.3-11.0)
[2017-01-27 04:00] VITALS: BP 140/67
[2017-01-27 04:24] LABS: ALBUMIN 3.2 G/DL (3.2-4.5); BILIRUBIN,TOTAL 0.6 MG/DL (0.1-1.0); CALCIUM 8.3 MG/DL (8.5-10.1); CREATININE SERUM 1.81 MG/DL (0.60-1.30); POTASSIUM 3.9 MMOL/L (3.6-5.0); TOTAL PROTEIN 5.5 G/DL (6.4-8.2)
[2017-01-27] MEDS: meTOprolol 5 MG/5 ML (LOPRESSOR) VIAL IV SCH ×3 (05:55→17:55)
--- NOTE | 2017-01-27 06:46 | ECHOCARDIOGRAPHY REPORT ---
DATE OF SERVICE: 2D ECHOCARDIOGRAM DATE OF SERVICE: 01/26/2017 ATTENDING PHYSICIAN: Dr. Aparna Carson DIAGNOSIS: Cerebrovascular accident. FINDINGS: 1. Sinus rhythm with possible PACs and PVCs. 2. Left atrial dimension is borderline enlarged. Left atrial diameter is 4.0 cm. 3. Aortic root dimensions are normal. 4. Left ventricular systolic function is significantly reduced. Left ventricular ejection fraction is 30%. Moderate concentric LVH is present. Diastolic interventricular septal diameter is 1.4 cm. 5. There is no wall motion abnormalities. 6. Right heart size and function is normal. 7. There is no evidence of pericardial effusion. 8. Mild diastolic dysfunction is present. 9. IVC is dilated with a diameter of 2.2 cm which may suggest increased right atrial pressure. VALVULAR STRUCTURES OF THE HEART There is trace tricuspid regurgitation with RVSP of 12 mmHg. There is no significant mitral regurgitation. Aortic valve and pulmonic valve are normal. CONCLUSION: 1. At least moderately reduced left ventricular systolic function with an ejection fraction of 30%. 2. Moderate concentric left ventricular hypertrophy with mild diastolic dysfunction present. 3. Borderline enlarged left atrium. Pulmonary artery pressure is normal. 4. There is no significant valvular heart disease. 5. Inferior vena cava is dilated which may suggest increased right atrial pressure. Job ID: [id number] DocumentID: [id number] Dictated Date: 01/26/2017 16:20:24 Basic Acoustic Analyst Date: 01/26/2017 17:09:48 Dictated By: RAVIN PICKENS MD
--- NOTE | 2017-01-27 09:03 | Progress Note (SOAP) ---
Subjective Subjective/Events-last exam PT NONVERBAL, UNABLE TO ANSWER QUESTIONS OR RESPOND MEANINGFULLY IN ANY MANNER. FAMILY REPORTS SIGNIFICANT RESTLESSNESS LAST NIGHT. PT'S SON REPORTS THAT THE FAMILY WOULD LIKE CONSERVATIVE TREATMENT, BUT GIVE PT TIME TO SEE IF HE WILL HAVE SOME IMPROVEMENT IN FUNCTION OVER THE WEEKEND - WILL DECIDE ON MONDAY FOR CARE HOME VERSUS HOSPICE. Review of Systems Neurological: Other (RIGHT SIDED NEGLECT) PT OBTUNDED, OPENS EYES WITH TACTILE AND LOUD VOCALIZATIONS, NO RESPONSE VERBALLY, NO APPEARANCE OF UNDERSTANDING, DOES NOT FOLLOW COMMANDS. Objective Exam Vital Signs Date Time Temp Pulse Resp B/P (MAP) Pulse Ox O2 Delivery O2 Flow Rate FiO2 01/27/17 07:00 45 01/27/17 04:00 100.1 49 16 140/67 100 Nasal Cannula 2.00 01/27/17 03:30 2.00 01/27/17 01:20 53 01/27/17 00:15 2.00 01/27/17 00:00 101.4 54 18 154/81 100 Nasal Cannula 2.00 01/26/17 23:30 101.4 01/26/17 21:00 Nasal Cannula 2.00 01/26/17 20:00 2.00 01/26/17 19:00 61 01/26/17 19:00 99.0 58 18 151/66 97 Nasal Cannula 2.00 01/26/17 16:00 100.9 59 167/66 97 Nasal Cannula 2.00 01/26/17 16:00 2.00 01/26/17 14:00 59 168/70 95 Nasal Cannula 2.00 01/26/17 13:00 46 01/26/17 13:00 51 143/49 98 Nasal Cannula 2.00 01/26/17 12:00 97.7 49 20 140/49 98 Nasal Cannula 2.00 01/26/17 12:00 2.00 01/26/17 11:00 45 150/56 98 Nasal Cannula 2.00 I & O 01/27/17 07:00 Intake Total 2000 ml Output Total 1300 ml Balance 700 ml Capillary Refill : Less Than 3 Seconds General Appearance: WD/WN, Other (OBTUNDED) HEENT: PERRL/EOMI Neck: Supple Respiratory: Chest Non Tender, Lungs Clear, Normal Breath Sounds Cardiovascular: Regular Rate, Rhythm Gastrointestinal: normal bowel sounds, non tender, soft, no organomegaly, no pulsatile mass Extremity: No Pedal Edema Neurologic/Psychiatric: Aphasia, Depressed Affect, Disoriented x3, Facial Droop (RIGHT MOUTH), Motor Weakness (NO MOVEMENT RIGHT ARM) Skin: Warm/Dry Results Lab Laboratory Tests 01/27/17 03:15: White Blood Count 6.5, Red Blood Count 3.45L, Hemoglobin 10.3L, Hematocrit 31L, Mean Corpuscular Volume 90, Mean Corpuscular Hemoglobin 30, Mean Corpuscular Hemoglobin Concent 33, Red Cell Distribution Width 14.8H, Platelet Count 105L, Mean Platelet Volume 12.1H, Sodium Level 137, Potassium Level 3.9, Chloride Level 110H, Carbon Dioxide Level 18L, Anion Gap 9, Blood Urea Nitrogen 20H, Creatinine 1.81H, Estimat Glomerular Filtration Rate 35, BUN/Creatinine Ratio 11 , Glucose Level 170H, Calcium Level 8.3L, Total Bilirubin 0.6, Aspartate Amino Transf (AST/SGOT) 15, Alanine Aminotransferase (ALT/SGPT) 8, Alkaline Phosphatase 55, Total Protein 5.5L, Albumin 3.2, Triglycerides Level 127, Cholesterol Level 116, LDL Cholesterol Direct 62, VLDL Cholesterol 25, HDL Cholesterol 27L Assessment/Plan Assessment/Plan Assess & Plan/Chief Complaint CVA CARDIOMYOPATHY HYPERTENSION DIABETES MELLITUS APHASIA HYPERLIPEMIA PT APPEARS TO HAVE HAD A SIGNIFICANT STROKE - WAITING ON REPEAT CT SCAN FOR FULL DETAILS, PT UNABLE TO TAKE PO MEDICATIONS - WILL GIVE BEST SUPPORTIVE CARE AT THIS TIME. I HAVE DISCUSSED WITH PT'S SON AND HE DOES NOT WANT ANY FEEDING TUBES, OR OTHER LIFE-PROLONGING TREATMENTS. HE WANTS HIS FATHER TO BE DNR/DNI. CT SCAN - REPORT FINDINGS FOLLOWS: Findings compatible with an acute nonhemorrhagic infarct surrounding the left insular region, affecting approximately 15% of the left MCA territory. ECHO REPORT: CONCLUSION: 1. At least moderately reduced left ventricular systolic function with an ejection fraction of 30%. 2. Moderate concentric left ventricular hypertrophy with mild diastolic dysfunction present. 3. Borderline enlarged left atrium. Pulmonary artery pressure is normal. 4. There is no significant valvular heart disease. 5. Inferior vena cava is dilated which may suggest increased right atrial pressure. CAROTID ULTRASOUND REPORT: Mild atherosclerotic plaque with estimated underlying stenosis less than 50% bilaterally. HTN - LOPRESSOR IV - PARAMETERS FOR BLOOD PRESSURE TO NOT GO BELOW 140 AND HEART RATE TO STAY ABOVE 50. DM - PT NPO - SUPPORTIVE CARE. APHASIA - SPEECH TO EVAL PT. DVT PROPHYLAXIS - PT TO HAVE SCD'S PLACED, BUT NO LOVENOX - FAMILY WANTS CONSERVATIVE TREATMENTS ONLY. Clinical Quality Measures DVT/VTE Risk/Contraindication: Risk Factor Score Per Nursin RFS Level Per Nursing on Admit: 4+=Very High JERRY NUGENT MD Jan 27, 2017 09:03
--- NOTE | 2017-01-27 09:45 | Physical Therapy Progress Note ---
Therapy Progress Note Dr. Carson instructed PT not intervene on this date. PT will continue to monitor patient medical status. HERBERT FIELDS PT Jan 27, 2017 09:45
[2017-01-27] MEDS: FAMOTIDINE 20MG/2ML IV (PEPCID) IV SCH (10:23)
[2017-01-27] MEDS: ASPIRIN 300 MG (5 GR) SUPPOSITORY PR SCH (10:24)
--- NOTE | 2017-01-27 10:35 | Occ Therapy Progress Note ---
Therapy Progress Note 1034 Per PT note, will not see pt today. BRUCE TRUONG OT Jan 27, 2017 10:35
--- NOTE | 2017-01-27 10:53 | Speech Therapy Progress Note ---
Therapy Progress Note Speech pathology attempted to re-assess the patient's swallowing function on this date. The patient was minimally roused (eyes intermittently open) to gentle verbal and tactile prompts. The patient was placed in an upright position prior to assessment attempt. At baseline, the patient demonstrated an SpO2% of 98% with supplemental oxygen (2L) via nasal cannula. Due to the patient 's minimal alertness level, he was not deemed safe for PO trial attempts. The clinician provided extensive oral care, including suctioning of secretions. The patient should remain NPO at this time. To note: While visiting with the patient's family, the patient was noted to cough on secretions. The patient does not appear to elicit a spontaneous swallow to control secretions at this time. Suctioning and oral care should be provided, as appropriate. KIET OWEN Jan 27, 2017 10:53
[2017-01-27 13:55] VITALS: BP 172/69
[2017-01-27] MEDS: ACETAMINOPHEN 650 MG SUPP (TYLENOL) PR PRN (15:04)
--- NOTE | 2017-01-27 15:31 | Speech Therapy Progress Note ---
Therapy Progress Note Speech pathology attempted swallow re-assessment on this date/time. The patient appeared agitated prior to the evaluation, however, was calmed with gentle verbal cues. The patient intermittently opened eyes to request but not consistently/purposefully. The patient's oral cavity was cleaned with a wet, cool swab in attempts to trigger a thermal-tactile swallow response. No swallow attempts were made by the patient. The clinician continued oral care with limited to no participation. At this time, the patient is not triggering a swallow and not remaining in an alert state for full participation. Speech pathology will re-attempt as able. KIET OWEN Jan 27, 2017 15:31
[2017-01-27 15:50] VITALS: BP 171/66
[2017-01-27 18:01] VITALS: BP 175/67
[2017-01-27] MEDS: LORazepam INJ 2 MG/ML (ATIVAN) VIAL IVP PRN (18:52)
[2017-01-27 20:00] VITALS: BP 175/74
[2017-01-28] VITALS: BP 171/75
[2017-01-28] MEDS: meTOprolol 5 MG/5 ML (LOPRESSOR) VIAL IV SCH ×5 (00:08→23:58)
[2017-01-28 04:00] VITALS: BP 177/70
[2017-01-28 08:00] VITALS: BP 171/81
[2017-01-28] MEDS: D5 1/2 NS 1000 ML IV SOLUTION 1,000 ML IV SCH ×2 (08:07→19:58)
[2017-01-28] MEDS: ASPIRIN 300 MG (5 GR) SUPPOSITORY PR SCH (08:07)
[2017-01-28] MEDS: FAMOTIDINE 20MG/2ML IV (PEPCID) IV SCH (08:11)
--- NOTE | 2017-01-28 08:59 | Progress Note (SOAP) ---
Subjective Subjective/Events-last exam patient having a cough today. Spoke to son and states father not progressing. CVA. Right sided weakness. aphagia Hypertension. Renal insufficiency. Coronary artery disease. Peripheral vascular disease. Patient not improving in any way and now has cough Objective Exam Vital Signs Date Time Temp Pulse Resp B/P (MAP) Pulse Ox O2 Delivery O2 Flow Rate FiO2 01/28/17 08:00 100.2 58 24 171/81 98 Nasal Cannula 2.00 01/28/17 07:46 2.00 01/28/17 04:00 99.3 59 24 177/70 97 Nasal Cannula 2.00 01/28/17 00:00 99.6 59 20 171/75 98 Nasal Cannula 2.00 01/27/17 20:00 Nasal Cannula 2.00 01/27/17 20:00 98.4 56 16 175/74 97 Nasal Cannula 2.00 01/27/17 18:01 99.2 54 16 175/67 99 Nasal Cannula 2.00 01/27/17 16:00 2.00 01/27/17 15:50 99.1 54 24 171/66 99 Nasal Cannula 2.00 01/27/17 13:55 99.1 51 20 172/69 98 Nasal Cannula 2.00 01/27/17 13:52 43 01/27/17 12:17 3.00 01/27/17 12:00 2.00 01/27/17 09:00 Nasal Cannula 2.00 I & O 01/28/17 07:00 Intake Total 1000 ml Output Total 1625 ml Balance -625 ml Capillary Refill : Less Than 3 Seconds Clinical Quality Measures DVT/VTE Risk/Contraindication: Risk Factor Score Per Nursin RFS Level Per Nursing on Admit: 4+=Very High Contraindications-Pharm: Other *list below* Contraindications-Mechi: Other *list below* Other: PT TO HAVE SCD'S, FAMILY DOES NOT WANT LOVENOX MAVERICK DOMÍNGUEZ DO Jan 28, 2017 08:59
[2017-01-28 10:22] LABS: MEAN PLATELET VOLUME 11.4 FL (7.4-10.4); RED BLOOD COUNT 3.61 10^6/uL (4.35-5.85); RED CELL DISTRIBUTION WIDTH 14.8 % (10.0-14.5); WHITE BLOOD COUNT 6.7 10^3/uL (4.3-11.0)
[2017-01-28] MEDS ORDERED: SALIVA SUBSTITUTE 60 ML SPRAY(MOUTHKOTE) MM PRN (10:30)
[2017-01-28] MEDS ORDERED: SALIVA STIMULANT MOUTH SPRAY (BIOTENE) 1.5 OZ MM PRN (10:30)
[2017-01-28 10:40] LABS: CALCIUM 8.4 MG/DL (8.5-10.1); CREATININE SERUM 1.75 MG/DL (0.60-1.30); POTASSIUM 3.9 MMOL/L (3.6-5.0)
[2017-01-28] MEDS: ACETAMINOPHEN 650 MG SUPP (TYLENOL) PR PRN (11:43)
[2017-01-28 11:57] VITALS: BP 167/71
[2017-01-28] MEDS: LORazepam INJ 2 MG/ML (ATIVAN) VIAL IVP PRN ×2 (12:47→21:12)
--- NOTE | 2017-01-28 14:38 | Diagnostic Imaging Report ---
Portable erect AP chest 1056 hours. INDICATION: Respiratory distress. FINDINGS: Both the heart and interstitial densities in both lungs do seem more prominent than noted on the prior exam of 01/26/17. I am concerned that there is now an element of mild pulmonary congestion present. The small amount of atelectasis/scar formation in the left lung base increased and the calcified granuloma in the left lower lobe is again evident and no different. There is still no sign of pneumonia. The mediastinum is not widened. The osseous structures are intact. The left-sided defibrillator device is unchanged. IMPRESSION: The appearance of the chest has worsened somewhat since the prior exam as both the heart and the interstitial densities in both lungs do seem more prominent. This appearance does suggest that there is now an element of mild pulmonary congestion present. A followup study would be recommended for continued evaluation. Dictated by: Dictated on workstation # [id number]
[2017-01-28] MEDS ORDERED: FUROSEMIDE 40 MG/4 ML INJ (LASIX) IVP ONE (15:45)
[2017-01-28 16:25] VITALS: BP 147/73
[2017-01-28] MEDS ORDERED: RT-ALBUTEROL/IPRATROPIUM 3 ML (DUONEB) VIAL INH PRN (17:00)
[2017-01-28] MEDS: RT-ALBUTEROL/IPRATROPIUM 3 ML (DUONEB) VIAL INH SCH (18:52)
[2017-01-28 20:20] VITALS: BP 147/61
[2017-01-29 00:37] VITALS: BP 145/69
[2017-01-29] MEDS: LORazepam INJ 2 MG/ML (ATIVAN) VIAL IVP PRN ×2 (02:26→10:35)
[2017-01-29 04:22] VITALS: BP 161/71
[2017-01-29 05:42] VITALS: BP 136/65
[2017-01-29] MEDS: meTOprolol 5 MG/5 ML (LOPRESSOR) VIAL IV SCH (05:42)
[2017-01-29 07:02] LABS: MEAN PLATELET VOLUME 12.4 FL (7.4-10.4); RED BLOOD COUNT 3.76 10^6/uL (4.35-5.85); RED CELL DISTRIBUTION WIDTH 14.8 % (10.0-14.5)
[2017-01-29 07:33] LABS: CALCIUM 8.9 MG/DL (8.5-10.1); CREATININE SERUM 1.79 MG/DL (0.60-1.30); POTASSIUM 3.5 MMOL/L (3.6-5.0)
[2017-01-29] MEDS: RT-ALBUTEROL/IPRATROPIUM 3 ML (DUONEB) VIAL INH SCH (07:47)
[2017-01-29 08:00] VITALS: BP 186/72
[2017-01-29] MEDS: FAMOTIDINE 20MG/2ML IV (PEPCID) IV SCH (08:19)
[2017-01-29] MEDS: ASPIRIN 300 MG (5 GR) SUPPOSITORY PR SCH (08:19)
--- NOTE | 2017-01-29 11:16 | Diagnostic Imaging Report ---
EXAM: CHEST 1 VIEW, AP/PA ONLY INDICATION: Pulmonary congestion. COMPARISON: Chest radiograph 01/28/2017. FINDINGS: Normal heart size. Diffuse interstitial opacities bilaterally consistent with pulmonary venous congestion is overall stable. Bilateral calcified granulomas. No pleural effusion or pneumothorax. Calcified aorta. AICD. No acute osseous findings. IMPRESSION: Persistent interstitial opacities compatible with mild pulmonary venous congestion. Heart size remains normal. Dictated by: Dictated on workstation # [id number]
--- NOTE | 2017-01-29 11:36 | Progress Note (SOAP) ---
Subjective Subjective/Events-last exam patient nonresponsive. Patient starting to have difficulty with his breathing. CVA. Cardiomyopathy. Hypertension. Diabetes. A fascia. Hyperlipidemia. Spoke to family explaining that patient is getting more fragile and worse area Febrile Objective Exam Vital Signs Date Time Temp Pulse Resp B/P (MAP) Pulse Ox O2 Delivery O2 Flow Rate FiO2 01/29/17 08:00 101.3 70 24 186/72 96 Nasal Cannula 2.00 01/29/17 08:00 Nasal Cannula 2.00 01/29/17 07:50 96 2.00 01/29/17 07:00 65 01/29/17 05:42 79 136/65 01/29/17 04:22 100.1 52 20 161/71 94 Nasal Cannula 2.00 01/29/17 01:39 52 01/29/17 00:37 100.0 54 24 145/69 94 Nasal Cannula 2.00 01/28/17 20:20 99.6 60 24 147/61 99 Nasal Cannula 2.00 01/28/17 19:50 99 Nasal Cannula 2.00 01/28/17 18:55 43 01/28/17 18:55 96 2.00 01/28/17 16:25 98.7 61 24 147/73 100 Nasal Cannula 2.00 01/28/17 16:14 97 01/28/17 13:00 53 01/28/17 11:57 100.2 52 24 167/71 99 Nasal Cannula 2.00 I & O 01/29/17 07:00 Intake Total 1000 ml Output Total 3375 ml Balance -2375 ml Capillary Refill : Less Than 3 SecondsLess Than 3 Seconds General Appearance: Other (unresponsive) Respiratory: Other (congestion and chest) Cardiovascular: Regular Rate, Rhythm Results Lab Laboratory Tests 01/29/17 06:51: White Blood Count 7.0, Red Blood Count 3.76L, Hemoglobin 11.2L, Hematocrit 34L, Mean Corpuscular Volume 90, Mean Corpuscular Hemoglobin 30, Mean Corpuscular Hemoglobin Concent 33, Red Cell Distribution Width 14.8H, Platelet Count 115L, Mean Platelet Volume 12.4H, Sodium Level 140, Potassium Level 3.5L, Chloride Level 108H, Carbon Dioxide Level 22, Anion Gap 10, Blood Urea Nitrogen 20H, Creatinine 1.79H, Estimat Glomerular Filtration Rate 36, BUN/Creatinine Ratio 11 , Glucose Level 124H, Calcium Level 8.9 Assessment/Plan Assessment/Plan Assess & Plan/Chief Complaint patient more fragile today. Patient breathing worse. Patient nonresponsive. Family wants everything stop. Family wants comfort care Clinical Quality Measures DVT/VTE Risk/Contraindication: Risk Factor Score Per Nursin RFS Level Per Nursing on Admit: 4+=Very High Contraindications-Pharm: Other *list below* Contraindications-Mechi: Other *list below* Other: PT TO HAVE SCD'S, FAMILY DOES NOT WANT LOVENOX MAVERICK DOMÍNGUEZ DO Jan 29, 2017 11:35
[2017-01-29] MEDS ORDERED: SALIVA STIMULANT MOUTH SPRAY (BIOTENE) 1.5 OZ MM PRN (12:00)
[2017-01-29] MEDS ORDERED: ARTIFICIAL TEARS OINT (LACRI-LUBE) 3.5 GM TUBE OU PRN (12:00)
[2017-01-29] MEDS ORDERED: ARTIFICAL TEARS 0.4 ML UNIT DOSE (REFRESH PLUS) OU PRN (12:00)
[2017-01-29] MEDS ORDERED: BISACODYL 10 MG SUPP (DULCOLAX) PR PRN (12:00)
[2017-01-29] MEDS ORDERED: ACETAMINOPHEN 650 MG SUPP (TYLENOL) PR PRN (12:00)
[2017-01-29] MEDS ORDERED: RT-ALBUTEROL/IPRATROPIUM 3 ML (DUONEB) VIAL INH PRN (12:00)
[2017-01-29] MEDS: GLYCOPYRROLATE 0.2 MG/ML (ROBINUL) 2 ML VIAL IV PRN ×2 (12:05→21:05)
[2017-01-29] MEDS: morphine INJ 4 MG/ML 1 ML (VIAL/SYRINGE) IV PRN ×4 (12:05→21:05)
[2017-01-30] MEDS: morphine INJ 4 MG/ML 1 ML (VIAL/SYRINGE) IV PRN ×4 (01:05→09:47)
[2017-01-30] MEDS: GLYCOPYRROLATE 0.2 MG/ML (ROBINUL) 2 ML VIAL IV PRN ×3 (01:32→23:16)
--- NOTE | 2017-01-30 08:12 | Speech Therapy Progress Note ---
Therapy Progress Note As the patient's family has decided upon comfort care, speech pathology will sign off at this time. Thank you. KIET OWEN Jan 30, 2017 08:12
--- NOTE | 2017-01-30 09:37 | Progress Note (SOAP) ---
Subjective Subjective/Events-last exam pt unresponsive family reports pt appears to be comfortable Review of Systems PT OBTUNDED, OPENS EYES WITH TACTILE AND LOUD VOCALIZATIONS, NO RESPONSE VERBALLY, NO APPEARANCE OF UNDERSTANDING, DOES NOT FOLLOW COMMANDS. Objective Exam Vital Signs Date Time Temp Pulse Resp B/P (MAP) Pulse Ox O2 Delivery O2 Flow Rate FiO2 01/30/17 08:07 Nasal Cannula 2.00 01/29/17 19:42 2.00 01/29/17 19:40 Nasal Cannula 2.00 I & O 01/30/17 07:00 Intake Total 0 ml Output Total 1000 ml Balance -1000 ml Capillary Refill : Less Than 3 SecondsLess Than 3 Seconds General Appearance: Other (obtunded, no acute distress, unresponsive) Respiratory: Rhonci Cardiovascular: Irregularly Irregular Gastrointestinal: non tender Extremity: Pedal Edema Neurologic/Psychiatric: Other (obtuneded) Assessment/Plan Assessment/Plan Assess & Plan/Chief Complaint CVA CARDIOMYOPATHY HYPERTENSION DIABETES MELLITUS APHASIA HYPERLIPEMIA PT APPEARS TO HAVE HAD A SIGNIFICANT STROKE - WAITING ON REPEAT CT SCAN FOR FULL DETAILS, PT UNABLE TO TAKE PO MEDICATIONS - WILL GIVE BEST SUPPORTIVE CARE AT THIS TIME. I HAVE DISCUSSED WITH PT'S SON AND HE DOES NOT WANT ANY FEEDING TUBES, OR OTHER LIFE-PROLONGING TREATMENTS. HE WANTS HIS FATHER TO BE DNR/DNI. CT SCAN - REPORT FINDINGS FOLLOWS: Findings compatible with an acute nonhemorrhagic infarct surrounding the left insular region, affecting approximately 15% of the left MCA territory. ECHO REPORT: CONCLUSION: 1. At least moderately reduced left ventricular systolic function with an ejection fraction of 30%. 2. Moderate concentric left ventricular hypertrophy with mild diastolic dysfunction present. 3. Borderline enlarged left atrium. Pulmonary artery pressure is normal. 4. There is no significant valvular heart disease. 5. Inferior vena cava is dilated which may suggest increased right atrial pressure. CAROTID ULTRASOUND REPORT: Mild atherosclerotic plaque with estimated underlying stenosis less than 50% bilaterally. FAMILY WANTS CONSERVATIVE TREATMENTS ONLY. Clinical Quality Measures DVT/VTE Risk/Contraindication: Risk Factor Score Per Nursin RFS Level Per Nursing on Admit: 4+=Very High Contraindications-Pharm: Other *list below* Contraindications-Mechi: Other *list below* Other: PT TO HAVE SCD'S, FAMILY DOES NOT WANT LOVENOX JERRY NUGENT MD Jan 30, 2017 09:37
[2017-01-30] MEDS: morphine INJ 4 MG/ML 1 ML (VIAL/SYRINGE) IVP SCH ×2 (09:45→12:05)
[2017-01-30] MEDS: morphine INJ 10 MG/ML 1ML (SYR OR VIAL) IVP SCH ×2 (17:35→23:12)
[2017-01-30] MEDS ORDERED: GLYCOPYRROLATE 0.2 MG/ML (ROBINUL) 2 ML VIAL IV SCH (21:00)
[2017-01-31] MEDS: LORazepam INJ 2 MG/ML (ATIVAN) VIAL IVP PRN (01:40)
[2017-01-31] MEDS: morphine INJ 4 MG/ML 1 ML (VIAL/SYRINGE) IV PRN (01:40)
--- NOTE | 2017-02-22 09:36 | Discharge Summary ---
Diagnosis/Chief Complaint Date of Admission Jan 26, 2017 at 04:13 Date of Discharge Jan 31, 2017 at 02:00 Admission Diagnosis Admission Diagnosis CVA CARDIOMYOPATHY HYPERTENSION DIABETES MELLITUS APHASIA HYPERLIPEMIA Discharge Diagnosis CVA CARDIOMYOPATHY HYPERTENSION DIABETES MELLITUS APHASIA HYPERLIPEMIA Reason Hospital Visit PT IS AN 89 Y/O MALE WHO IS KNOWN TO ME FROM CLINIC. THE PATIENT HAS HISTORY OF CORONARY ARTERY DISEASE, PERIPHERAL VASCULAR DISEASE. HE PRESENTED TO THE EMERGENCY DEPARTMENT AFTER HIS AWAKENED TO ED PULLING/ MOVING THE SHEETS - THIS WAS AROUND 1 AM. SHE REPORTS THAT SHE WAS UNABLE TO AWAKEN HIM AND SHE CALLED HER SISTERS AND 911. HE ARRIVED THE THE EMERGENCY DEPT AND WAS STILL NOT COHERENT, CT SCAN WAS NEGATIVE, BUT PHYSICAL EXAM WAS CONSISTENT WITH STROKE. THE PT WAS ADMITTED TO THE ICU, TPA WAS NOT ADMINISTERED DUE TO HIS AGE, RENAL FUNCTION. HE WAS UNABLE TO SWALLOW MEDICATION FOR ADMINISTRATION OF ASPIRIN/ PLAVIX. Discharge Summary Discharge Physical Examination Allergies: Coded Allergies: Iodinated Contrast Media - Oral and (Verified Allergy, Unknown, 01/26/17) codeine (Verified Allergy, Unknown, 11/08/06) General Appearance: Other () Respiratory: Other (NO AIR MOVEMENT) Cardiovascular: Other (NO CARDIAC ACTIVITY) Psych/Mental Status: Other (PT ) Hospital Course CVA CARDIOMYOPATHY HYPERTENSION DIABETES MELLITUS APHASIA HYPERLIPEMIA PT APPEARS TO HAVE HAD A SIGNIFICANT STROKE - WAITING ON REPEAT CT SCAN FOR FULL DETAILS, PT UNABLE TO TAKE PO MEDICATIONS - WILL GIVE BEST SUPPORTIVE CARE AT THIS TIME. I HAVE DISCUSSED WITH PT'S SON AND HE DOES NOT WANT ANY FEEDING TUBES, OR OTHER LIFE-PROLONGING TREATMENTS. HE WANTS HIS FATHER TO BE DNR/DNI. CT SCAN - REPORT FINDINGS FOLLOWS: Findings compatible with an acute nonhemorrhagic infarct surrounding the left insular region, affecting approximately 15% of the left MCA territory. ECHO REPORT: CONCLUSION: 1. At least moderately reduced left ventricular systolic function with an ejection fraction of 30%. 2. Moderate concentric left ventricular hypertrophy with mild diastolic dysfunction present. 3. Borderline enlarged left atrium. Pulmonary artery pressure is normal. 4. There is no significant valvular heart disease. 5. Inferior vena cava is dilated which may suggest increased right atrial pressure. CAROTID ULTRASOUND REPORT: Mild atherosclerotic plaque with estimated underlying stenosis less than 50% bilaterally. FAMILY WANTS CONSERVATIVE TREATMENTS ONLY. PT WITH FAMILY BY BEDSIDE, NURSING STAFF IN ATTENDANCE Discharge Condition at discharge PT Instructions to patient/family PT Discharge Medications PT Clinical Quality Measures DVT/VTE Risk/Contraindication: Risk Factor Score Per Nursin RFS Level Per Nursing on Admit: 4+=Very High Contraindications-Pharm: Other *list below* Contraindications-Mechi: Other *list below* Other: PT TO HAVE SCD'S, FAMILY DOES NOT WANT LOVENOX JERRY NUGENT MD February 22, 2017 09:36
== END 2017-01-31 02:00 | disposition expired | DRG 65 ==
LOC: EDUNIT# 02:14 → ER 02:15 → ICU 04:13 → 4TH 01-27 13:50
PROVIDERS: ADMIT Family Medicine; ATTEND Family Medicine
DX: I63.50 Cerebral infarction due to unspecified occlusion or stenosis of unspecified cerebral artery (principal); G81.91 Hemiplegia, unspecified affecting right dominant side; R29.810 Facial weakness; R47.01 Aphasia; R13.10 Dysphagia, unspecified; I42.9 Cardiomyopathy, unspecified; I25.10 Atherosclerotic heart disease of native coronary artery without angina pectoris; Z66 Do not resuscitate; Z51.5 Encounter for palliative care; N19 Unspecified kidney failure; R29.727 NIHSS score 27; I25.2 Old myocardial infarction; I10 Essential (primary) hypertension; E78.00 Pure hypercholesterolemia, unspecified; E11.51 Type 2 diabetes mellitus with diabetic peripheral angiopathy without gangrene; I44.0 Atrioventricular block, first degree; I44.7 Left bundle-branch block, unspecified; H35.30 Unspecified macular degeneration; M10.9 Gout, unspecified; Z87.891 Personal history of nicotine dependence; Z95.0 Presence of cardiac pacemaker; Z95.5 Presence of coronary angioplasty implant and graft
CPT/HCPCS: 36415; 51702; 70450; 71010; 80048; 80053; 80061; 81000; 84484; 85025; 85027; 85379; 85610; 85730; 93005; 93041; 93306; 93880; 94640; 94760; 96360